=== PATIENT | male | born 2000 | race Caucasian/White ===

== ENCOUNTER 2024-07-15 00:53 | Emergency (ER) | payer BC, SELFPAY ==
[2024-07-15 01:01] VITALS: BP 122/70
[2024-07-15 01:42] VITALS: BMI 25.1
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
== END 2024-07-15 02:20 | disposition home or self-care (01) ==
LOC: EMR 00:53
PROVIDERS: EMERGENCY PHYSICIAN Student in an Organized Health Care Education/Training Program
DX: M25.531 Pain in right wrist (principal); Y93.55 Activity, bike riding
CPT/HCPCS: 99283; 73110